=== PATIENT | female | born 1980 | race Caucasian/White ===

== ENCOUNTER → 2019-10-10 | Outpatient (CLI) | payer BC ==
--- NOTE | 2019-10-10 15:16 | REP ---
MRI lumbar spine: New 10/10/2019. Indication: Lumbar radiculopathy. Comparison: None. Technique: Multiplanar short and long TR sequences of the lumbar spine were performed without IV Gadolinium. Findings: There is straightening of the lumbar lordosis. No worrisome marrow or cord signal abnormalities are present. Disc desiccation and disc space narrowing are present at L3/L4 and L4/L5. No significant paraspinal soft tissue abnormalities are present. L1/L2, L2/L3 and L5/S1: No focal disc herniations or significant spinal canal / neural foraminal narrowing are present. L3/L4: Disc settling and desiccation are present with mild diffuse disc bulge. There is mild spinal canal / neural foraminal narrowing. L4/L5: There is a large posterior central disc extrusion with minimal cephalad and caudal migration superimposed on a mild diffuse disc bulge. Bilateral facet arthropathy is present. There is severe bilateral recess narrowing, more pronounced on the left. Mild to moderate bilateral neural foraminal narrowing is present. 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 Please correlate with radicular level. Electronically Signed by Jasson Cerna DO 10/10/2019 03:07 P
== END ==
LOC: M RAD 12:55
PROVIDERS: ATTEND Nurse Practitioner Family
DX: M54.16 Radiculopathy, lumbar region (principal); M51.26 Other intervertebral disc displacement, lumbar region